=== PATIENT | female | born 1985 | race Caucasian/White ===

== ENCOUNTER 2017-07-08 13:09 | Emergency (ER) | payer OTHER ==
[~2017-07-08] VITALS: Ht 157.5 cm; Wt 62.0 kg
[~2017-07-08 13:09] MED LIST: IBUP-1222 PO; OXYC-302 PO
[2017-07-08 13:17] VITALS: BP 122/82
[2017-07-08] MEDS ORDERED: CIPROFLOXACIN 500 MG TABLET PO ONE (14:30)
[2017-07-08] MEDS ORDERED: CIPROFLOXACIN 500 MG TABLET ONE (14:45)
== END 2017-07-08 15:49 | disposition home or self-care (01) ==
LOC: ED 14:24
DX: O90.89 Other complications of the puerperium, not elsewhere classified (principal)
CPT/HCPCS: 99282